=== PATIENT | female | born 1980 | race Two or more races ===

== ENCOUNTER 2017-09-28 14:15 | Inpatient (IN) | payer SELFPAY ==
[2017-09-28 15:33] LABS: URINE HCG POC HCG NEGATIVE (Negative)
[2017-09-28 15:40] LABS: BARBITURATES NEG (NEG); BENZODIAZEPINES NEG (NEG); CANNABINOIDS NEG (NEG); COCAINE NEG (NEG); METHADONE NEG (NEG); OPIATES NEG (NEG); PHENCYCLIDINE NEG (NEG)
[2017-09-28 15:42] LABS: ADD MAN DIFF? NO
[2017-09-28 15:43] LABS: AMPHETAMINE/METHAMPHETAMINE POS (NEG); ETHANOL, URINE NEG (NEG)
[2017-09-28 15:45] LABS: BASO % 1 % (0-3); EOS # 0.1 x10^3/uL (0.0-0.7); EOS % 1 % (0-3); HEMATOCRIT 35.5 % (36.0-47.0); LYMPH # 0.8 x10^3/uL (1.0-4.8); LYMPH % 14 % (24-48); MEAN CORPUSCULAR HEMOGLOBIN 29 pg (25-35); MEAN CORPUSCULAR HGB CONC 34 g/dL (31-37); MEAN CORPUSCULAR VOLUME 85 fL (79-100); MONO # 0.6 x10^3/uL (0.0-1.1); MONO % 10 % (0-9); NEUT # 4.7 x10^3uL (1.8-7.7); NEUT % 75 % (31-73); PLATELET COUNT 115 x10^3/uL (140-400); RED BLOOD COUNT 4.16 x10^6/uL (3.50-5.40); RED CELL DISTRIBUTION WIDTH 14.6 % (11.5-14.5); WHITE BLOOD COUNT 6.3 x10^3/uL (4.0-11.0)
[2017-09-28] MEDS: MULTIVIT INFUSN,ADULT 4,VIT K 10 ML, THIAMINE 100 MG, FOLIC ACID 1 MG in IV DEXTROSE 5%... IV (15:45)
[2017-09-28 15:57] LABS: BLOOD UREA NITROGEN 16 mg/dL (7-20); BUN/CREATININE RATIO 16 (6-20); CALCIUM 8.9 mg/dL (8.5-10.1); GLUCOSE 95 mg/dL (70-99)
[2017-09-28 15:58] LABS: ANION GAP 14 (6-14); CARBON DIOXIDE 23 mmol/L (21-32); CHLORIDE 101 mmol/L (98-107); GFR 62.4; POTASSIUM 3.7 mmol/L (3.5-5.1); SODIUM 138 mmol/L (136-145)
[2017-09-28 16:05] LABS: ALBUMIN 4.1 g/dL (3.4-5.0); ALBUMIN/GLOBULIN RATIO 0.8 (1.0-1.7); ALK PHOS 129 U/L (46-116); ALT (SGPT) 49 U/L (14-59); AST (SGOT) 41 U/L (15-37); TOTAL BILIRUBIN 0.7 mg/dL (0.2-1.0); TOTAL PROTEIN 9.3 g/dL (6.4-8.2)
[2017-09-29] MEDS ORDERED: hydrALAZINE 20 MG/ML VIAL. IVP (10:00)
[2017-09-29] MEDS ORDERED: ONDANSETRON PF 4 MG/2 ML VIAL. IV (10:00)
[2017-09-29] MEDS ORDERED: ACETAMINOPHEN 325 MG TABLET. PO (10:00)
[2017-09-29] MEDS ORDERED: DOCUSATE SODIUM 100 MG CAPSULE. PO (10:00)
[2017-09-29] MEDS ORDERED: MORPHINE SULFATE 4 MG/ML DISP.SYRIN. IV (10:00)
[2017-09-29] MEDS: IV NORMAL SALINE 1000ML BAG 1,000 ML IV (13:32)
[2017-09-29] MEDS: NEOMYCIN/POLYMYXIN/HC OTIC SUSPENSION 10ML BOTTLE. AD (13:33)
[2017-09-29] MEDS: traMADol 50 MG TABLET PO (13:35)
[2017-09-29] MEDS: SILDENAFIL CITRATE 20 MG TABLET. PO ×2 (15:00→21:37)
[2017-09-29 15:11] LABS: SEDIMENTATION RATE 57 (0-25)
[2017-09-29] MEDS: FLUoxetine HCL 20 MG CAPSULE PO (15:54)
[2017-09-29] MEDS: predniSONE 5 MG TABLET PO (15:54)
[2017-09-29] MEDS: HYDROcodone/APAP 5/325MG 1 TAB TABLET PO (15:54)
[2017-09-29] MEDS: CELECOXIB 200 MG CAPSULE. PO (15:54)
[2017-09-29] MEDS: clonazePAM 1 MG TABLET PO (15:54)
[2017-09-29] MEDS: HYDROXYCHLOROQUINE 200 MG TABLET PO (21:36)
[2017-09-29] MEDS: oxyCODONE/APAP 10/325 1 TAB TABLET PO (21:37)
[2017-09-29] MEDS: CEFPODOXIME PROXETIL 100 MG TABLET. PO (21:38)
[2017-09-29] MEDS: CYCLOBENZAPRINE 10 MG TABLET. PO (21:38)
[2017-09-30] MEDS: IV NORMAL SALINE 1000ML BAG 1,000 ML IV ×4 (03:14→20:26)
[2017-09-30] MEDS: HYDROcodone/APAP 5/325MG 1 TAB TABLET PO (03:32)
[2017-09-30 03:39] LABS: ADD MAN DIFF? NO
[2017-09-30 03:54] LABS: BASO % 1 % (0-3); EOS # 0.1 x10^3/uL (0.0-0.7); EOS % 3 % (0-3); HEMOGLOBIN 11.2 g/dL (12.0-15.5); LYMPH # 0.8 x10^3/uL (1.0-4.8); LYMPH % 33 % (24-48); MEAN CORPUSCULAR HEMOGLOBIN 29 pg (25-35); MEAN CORPUSCULAR HGB CONC 34 g/dL (31-37); MEAN CORPUSCULAR VOLUME 86 fL (79-100); MONO # 0.4 x10^3/uL (0.0-1.1); MONO % 17 % (0-9); NEUT # 1.2 x10^3uL (1.8-7.7); NEUT % 45 % (31-73); PLATELET COUNT 96 x10^3/uL (140-400); RED BLOOD COUNT 3.85 x10^6/uL (3.50-5.40); RED CELL DISTRIBUTION WIDTH 14.8 % (11.5-14.5); WHITE BLOOD COUNT 2.6 x10^3/uL (4.0-11.0)
[2017-09-30 03:57] LABS: BILIRUBIN,URINE NEGATIVE (NEG); CLARITY,URINE CLEAR; COLOR,URINE YELLOW; GLUCOSE,URINE NEGATIVE (NEG); NITRITE,URINE NEGATIVE (NEG); PROTEIN,URINE NEGATIVE (NEG-TRACE); UROBILINOGEN,URINE 0.2 mg/dL (0.2 mg/dL)
[2017-09-30 04:07] LABS: ANION GAP 11 (6-14); BLOOD UREA NITROGEN 12 mg/dL (7-20); CALCIUM 7.9 mg/dL (8.5-10.1); CARBON DIOXIDE 21 mmol/L (21-32); CHLORIDE 108 mmol/L (98-107); CREATININE 0.8 mg/dL (0.6-1.0); GFR 80.7; GLUCOSE 107 mg/dL (70-99); POTASSIUM 4.1 mmol/L (3.5-5.1); SODIUM 140 mmol/L (136-145)
[2017-09-30 05:09] LABS: BACTERIA,URINE 0 /HPF (0-FEW); RBC,URINE OCC /HPF (0-2); SQUAMOUS EPITHELIAL CELL,UR FEW /LPF; WBC,URINE 0 /HPF (0-4)
[2017-09-30] MEDS: predniSONE 5 MG TABLET PO (08:48)
[2017-09-30] MEDS: FLUoxetine HCL 20 MG CAPSULE PO (08:50)
[2017-09-30] MEDS: ASPIRIN CHEWABLE 81 MG TABLET. PO (08:50)
[2017-09-30] MEDS: CYCLOBENZAPRINE 10 MG TABLET. PO ×2 (08:50→20:24)
[2017-09-30] MEDS: CEFPODOXIME PROXETIL 100 MG TABLET. PO ×2 (08:50→20:23)
[2017-09-30] MEDS: SILDENAFIL CITRATE 20 MG TABLET. PO ×3 (08:50→20:23)
[2017-09-30] MEDS: HYDROXYCHLOROQUINE 200 MG TABLET PO ×2 (08:51→20:24)
[2017-09-30] MEDS: clonazePAM 1 MG TABLET PO (08:51)
[2017-09-30] MEDS: oxyCODONE/APAP 10/325 1 TAB TABLET PO ×2 (08:51→20:24)
[2017-09-30] MEDS: CELECOXIB 200 MG CAPSULE. PO (08:51)
[2017-09-30] MEDS: NEOMYCIN/POLYMYXIN/HC OTIC SUSPENSION 10ML BOTTLE. AD (08:52)
[2017-09-30] MEDS: LACTOBACILLUS RHAMNOSUS GG 1 CAPSULE. PO (20:23)
[2017-10-01] MEDS: HYDROXYCHLOROQUINE 200 MG TABLET PO (08:41)
[2017-10-01] MEDS: CYCLOBENZAPRINE 10 MG TABLET. PO (08:41)
[2017-10-01] MEDS: clonazePAM 1 MG TABLET PO (08:41)
[2017-10-01] MEDS: NEOMYCIN/POLYMYXIN/HC OTIC SUSPENSION 10ML BOTTLE. AD (08:41)
[2017-10-01] MEDS: LACTOBACILLUS RHAMNOSUS GG 1 CAPSULE. PO (08:41)
[2017-10-01] MEDS: SILDENAFIL CITRATE 20 MG TABLET. PO ×2 (08:42→14:22)
[2017-10-01] MEDS: predniSONE 5 MG TABLET PO (08:42)
[2017-10-01] MEDS: FLUoxetine HCL 20 MG CAPSULE PO (08:42)
[2017-10-01] MEDS: ASPIRIN CHEWABLE 81 MG TABLET. PO (08:42)
[2017-10-01] MEDS: oxyCODONE/APAP 10/325 1 TAB TABLET PO (08:42)
[2017-10-01] MEDS: CEFPODOXIME PROXETIL 100 MG TABLET. PO (08:42)
[2017-10-01] MEDS: CELECOXIB 200 MG CAPSULE. PO (08:48)
[2017-10-01] MEDS: IV NORMAL SALINE 1000ML BAG 1,000 ML IV (12:00)
[2017-10-01] MEDS: HYDROcodone/APAP 5/325MG 1 TAB TABLET PO (16:03)
[2017-10-06] MEDS ORDERED: NON FORMULARY ITEM (Alendronate Sodium 1 TAB) PO (09:00)
== END 2017-10-01 15:15 | disposition home or self-care (01) | DRG 917 ==
LOC: ER 14:15 → 5 SOUTH 15:36
DX: T43.621A Poisoning by amphetamines, accidental (unintentional), initial encounter (principal); G92 Toxic encephalopathy; M32.9 Systemic lupus erythematosus, unspecified; I11.0 Hypertensive heart disease with heart failure; I50.9 Heart failure, unspecified; M79.7 Fibromyalgia; F29 Unspecified psychosis not due to a substance or known physiological condition; I25.10 Atherosclerotic heart disease of native coronary artery without angina pectoris; M19.90 Unspecified osteoarthritis, unspecified site; Z85.72 Personal history of non-Hodgkin lymphomas; Z86.73 Personal history of transient ischemic attack (TIA), and cerebral infarction without residual deficits; I25.2 Old myocardial infarction; Z91.410 Personal history of adult physical and sexual abuse
CPT/HCPCS: 36415; 71045; 76856; 80048; 80053; 80307; 81001; 81025; 85025; 85651; 93005; 96365; 99285; 99285-25; J2060; J7030; J7512